=== PATIENT | male | born 1980 | race African-American/Black ===

== ENCOUNTER 2019-08-31 18:28 | Inpatient (IN) ==
[2019-08-31] MEDS ORDERED: DOCUSATE SODIUM 100 MG CAPSULE PO PRN (18:48)
[2019-08-31] MEDS ORDERED: ONDANSETRON 4 MG/2 ML VIAL IV PRN (18:48)
[2019-08-31] MEDS ORDERED: traZODone 50 MG TABLET PO PRN (18:48)
[2019-08-31] MEDS ORDERED: cloNIDine 0.1 MG TABLET PO PRN (19:11)
[2019-08-31] MEDS ORDERED: rOPINIRole 1 MG TABLET PO PRN (19:11)
[2019-08-31] MEDS ORDERED: METHOCARBAMOL 750 MG TABLET PO PRN (19:11)
[2019-08-31] MEDS: cloNIDine 0.1 MG TABLET PO SCH (22:11)
[2019-08-31] MEDS: GABAPENTIN 300 MG CAPSULE PO SCH (22:11)
[2019-08-31] MEDS: NORTRIPTYLINE 25 MG CAPSULE PO SCH (22:12)
[2019-08-31] MEDS: BUPRENORPHINE SL TAB 2 MG TABLET SL SCH (22:12)
[2019-09-01 00:19] LABS: Apearance,Urine CLEAR (Clear); Bilirubin,Urine Negative (Negative); Blood, Urine Negative (Negative); Glucose,Urine (UA) Negative (Negative); Ketones,Urine Negative (Negative); Mucus,Urine Occasional /LPF (Occasional); Nitrite,Urine Negative (Negative); Protein,Urine Negative; RBC,Urine 2 /HPF (0-4); Squamous Epithelial Cell,Urine Occasional /HPF (0-10); Urine Color Straw (Yellow); Urine Specific Gravity 1.011 (1.001-1.035); Urine Urobilinogen < 2.0 EU/DL (0.2-1.0); WBC,Urine 4 /HPF (0-6)
[2019-09-01 01:51] LABS: Barbiturates Screen,Urine Negative (Negative); Benzodiazepines Screen,Urine Negative (Negative); Cannabinoid Screen,Urine Negative (Negative); Opiate Screen,Urine Positive (Negative); Phencyclidine Screen,Urine Negative (Negative)
[2019-09-01 04:56] LABS: Basophils % 0.8 % (0.0-0.8); Eosinophils # 0.1 10*3/uL (0.0-0.87); Eosinophils % 2.7 % (0.00-10.9); Hematocrit 42.8 VOL% (42.0-52.0); Hemoglobin 13.6 GM/DL (14.0-18.0); Lymphocytes # 2.2 10*3/uL (1.4-4.0); Lymphocytes % 58.8 % (21.2-54.2); Mean Corpuscular HGB Conc 31.8 GM/DL (32-36); Mean Corpuscular Volume 91.8 FL (87-102); Mean Platelet Volume 11.4 FL (9.6-12.0); Monocytes % 9.7 % (1.7-12.7); Platelet Count 237 T/CUMM (130-400); Red Blood Count 4.66 MC/CUMM (3.8-5.5); Red Cell Distribution Width 12.4 % (9.3-17.3); White Blood Count 3.7 T/CUMM (4-12)
[2019-09-01 05:24] LABS: Albumin 3.7 G/DL (3.4-5.0); Bilirubin,Total 1.1 MG/DL (0.2-1.0); Calcium 8.9 MG/DL (8.5-10.1); Osmolality,Calculated 274.5 MOS/KG (273-304); Total Protein 7.5 G/DL (6.4-8.3)
[2019-09-01 05:28] LABS: Anisocytosis 1+; Lymphocytes 50 % (20-55); Segmented Neutrophils 45 % (50-85); Total Cells Counted 100
[2019-09-01 05:29] LABS: Platelet Estimate Adequate
[2019-09-01] MEDS: BUPRENORPHINE SL TAB 2 MG TABLET SL SCH ×3 (06:23→22:12)
[2019-09-01] MEDS: NORTRIPTYLINE 25 MG CAPSULE PO SCH ×2 (08:49→20:27)
[2019-09-01] MEDS: cloNIDine 0.1 MG TABLET PO SCH ×2 (08:50→20:27)
[2019-09-01] MEDS: GABAPENTIN 300 MG CAPSULE PO SCH ×3 (08:50→20:28)
[2019-09-01] MEDS: ENOXAPARIN 40 MG/0.4 ML SYRINGE SUBCUT SCH (08:50)
[2019-09-01] MEDS ORDERED: ERGOCALCIFEROL 50,000 UNIT CAPSULE PO SCH (09:00)
[2019-09-01] MEDS: DICYCLOMINE 10 MG CAPSULE PO PRN (17:38)
[2019-09-01] MEDS: HydrOXYzine PAMOATE 25 MG CAPSULE PO PRN (17:38)
[2019-09-02 06:25] LABS: Osmolality,Calculated 276.4 MOS/KG (273-304)
[2019-09-02] MEDS: BUPRENORPHINE SL TAB 2 MG TABLET SL SCH ×3 (06:37→21:07)
[2019-09-02] MEDS: DICYCLOMINE 10 MG CAPSULE PO PRN (06:38)
[2019-09-02] MEDS: cloNIDine 0.1 MG TABLET PO SCH ×2 (09:06→21:07)
[2019-09-02] MEDS: GABAPENTIN 300 MG CAPSULE PO SCH ×3 (09:06→21:07)
[2019-09-02] MEDS: NORTRIPTYLINE 25 MG CAPSULE PO SCH ×2 (09:06→21:07)
[2019-09-02] MEDS: ENOXAPARIN 40 MG/0.4 ML SYRINGE SUBCUT SCH (09:06)
[2019-09-02] MEDS: ACETAMINOPHEN 325 MG TABLET PO PRN ×2 (11:07→19:23)
[2019-09-02] MEDS: HydrOXYzine PAMOATE 25 MG CAPSULE PO PRN (14:41)
[2019-09-02] MEDS: POLYETHYLENE GLYCOL POWDER 17 GM PACK PO SCH (14:42)
[2019-09-03] MEDS: ACETAMINOPHEN 325 MG TABLET PO PRN ×4 (05:00→20:39)
[2019-09-03] MEDS: cloNIDine 0.1 MG TABLET PO SCH ×2 (08:35→20:39)
[2019-09-03] MEDS: NORTRIPTYLINE 25 MG CAPSULE PO SCH ×2 (08:35→20:39)
[2019-09-03] MEDS: GABAPENTIN 300 MG CAPSULE PO SCH ×3 (08:36→20:39)
[2019-09-03] MEDS: ENOXAPARIN 40 MG/0.4 ML SYRINGE SUBCUT SCH (08:36)
[2019-09-03] MEDS: POLYETHYLENE GLYCOL POWDER 17 GM PACK PO SCH (08:37)
[2019-09-03] MEDS: BUPRENORPHINE SL TAB 2 MG TABLET SL SCH (09:56)
[2019-09-03] MEDS: HydrOXYzine PAMOATE 25 MG CAPSULE PO PRN ×2 (13:43→20:38)
[2019-09-04] MEDS: ACETAMINOPHEN 325 MG TABLET PO PRN ×2 (04:09→08:18)
[2019-09-04] MEDS: POLYETHYLENE GLYCOL POWDER 17 GM PACK PO SCH (08:17)
[2019-09-04] MEDS: NORTRIPTYLINE 25 MG CAPSULE PO SCH (08:18)
[2019-09-04] MEDS: cloNIDine 0.1 MG TABLET PO SCH (08:18)
[2019-09-04] MEDS: GABAPENTIN 300 MG CAPSULE PO SCH (08:18)
[2019-09-04] MEDS: ENOXAPARIN 40 MG/0.4 ML SYRINGE SUBCUT SCH (09:25)
[2019-09-04 09:31] VITALS: BP 121/86
== END 2019-09-04 09:47 | disposition home or self-care (01) | DRG 897 ==
LOC: SUATTDRO 19:09 → N.4E 19:09
PROVIDERS: ADMIT Internal Medicine; ATTEND Internal Medicine Geriatric Medicine